=== PATIENT | male | born 1960 | race African-American/Black ===

== ENCOUNTER 2017-06-23 07:51 | Emergency (ER) | payer SELFPAY ==
[2017-06-23] MEDS ORDERED: Lidocaine 1% (PF) 30 ML VIAL ONE (08:37)
== END 2017-06-23 09:37 | disposition home or self-care (01) ==
LOC: ERS 07:51
DX: L02.212 Cutaneous abscess of back [any part, except buttock and flank] (principal); I10 Essential (primary) hypertension; F17.210 Nicotine dependence, cigarettes, uncomplicated; Z71.6 Tobacco abuse counseling; Z79.899 Other long term (current) drug therapy
CPT/HCPCS: 10060; 87070; 87077; 87186; 87205; 99406; J2001

== ENCOUNTER 2017-12-15 16:05 | Observation (INO) | payer BC, SELFPAY ==
[2017-12-15] MEDS ORDERED: Nitroglycerin 0.4 MG TAB (25 Tab Bottle) ONE (16:46)
[2017-12-15 16:51] LABS: #Eosinphils 0.3 thou/uL (0.0-0.7); #Lymphocytes 2.2 thou/uL (1.20-3.40); #Monocytes 0.4 thou/uL (0.11-0.59); #Neutrophils 2.2 thou/uL (1.40-6.50); %Basophils 0.5 % (0.0-1.0); %Eosinophils 5.6 % (0.0-10.0); %Monocytes 7.5 % (0.0-10.0); %Neutrophils 43.3 % (42.0-75.0); Hemoglobin 13.1 g/dL (14.0-18.0); Mean Corpuscular HGB CONC 33.8 g/dL (32.0-36.0); Mean Corpuscular Hemoglobin 31.1 pg (27.0-31.0); Mean Corpuscular Volume 91.9 fL (78.0-98.0); Mean Platelet Volume 7.6 fL (7.4-10.4); Platelet Count 312 thou/uL (130-400); RBC Distribution Width 12.1 % (11.5-14.5); Red Blood Cell (RBC) Count 4.23 mill/uL (4.70-6.10); White Blood Cell (WBC) Count 5.1 thou/uL (4.8-10.8)
[2017-12-15 17:16] LABS: ALT (SGPT) 14 U/L (8-55); AST (SGOT) 25 U/L (5-34); Albumin 3.8 g/dL (3.5-5.0); Alkaline Phosphatase 110 U/L (40-150); Anion Gap 13 mmol/L (10-20); BUN (Urea Nitrogen) 27 mg/dL (8.4-25.7); Bilirubin, Total 0.2 mg/dL (0.2-1.2); CK (CPK) 495 U/L (30-200); Calc. Creatinine Clearance 0 mL/min (70-130); Calcium 9.3 mg/dL (7.8-10.44); Carbon Dioxide 23 mmol/L (22-29); Chloride 107 mmol/L (98-107); Estimated GFR-MDRD 72; Globulin 3.4 g/dL (2.4-3.5); Glucose 113 mg/dL (70-105); Lipase 34 U/L (8-78); Potassium 3.9 mmol/L (3.5-5.1); Protein, Total 7.2 g/dL (6.0-8.3); Sodium 139 mmol/L (136-145)
[2017-12-15 17:19] LABS: CKMB 5.8 ng/mL (0-6.6); Troponin I Less than 0.010 ng/mL (< 0.028)
--- NOTE | 2017-12-15 17:38 | RAD ---
RADIOGRAPH CHEST 1 VIEW: 12/15/17 HISTORY: 57-year-old male with chest pain. FINDINGS: There are no air space densities, pulmonary edema, pneumothorax, or cardiomegaly. The lateral costop hrenic angles are sharp. IMPRESSION: No acute cardiopulmonary findings. sj [] POS: SELMA
[2017-12-15 18:52] LABS: Acetaminophen Less than 6.0 mcg/mL (10.0-30.0); Alcohol Less than 10 mg/dL (Less than 10); Salicylate Less than 8.0 mg/dL (15.0-30.0)
[2017-12-15 20:16] LABS: Troponin I Less than 0.010 ng/mL (< 0.028)
[2017-12-15] MEDS ORDERED: Acetaminophen 325 MG TAB PO PRN (20:16)
[2017-12-15] MEDS ORDERED: Ondansetron HCl/PF 4 MG/2 ML Vial IVP PRN (20:16)
[2017-12-15] MEDS ORDERED: Nitroglycerin 0.4 MG TAB (25 Tab Bottle) PO PRN (20:16)
[2017-12-15 22:51] VITALS: BMI 24.0
[2017-12-15 23:34] LABS: Troponin I 0.013 ng/mL (< 0.028)
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
[2017-12-16 06:41] LABS: Anion Gap 11 mmol/L (10-20); BUN (Urea Nitrogen) 20 mg/dL (8.4-25.7); Calc. Creatinine Clearance 91 mL/min (70-130); Carbon Dioxide 25 mmol/L (22-29); Chloride 107 mmol/L (98-107); Estimated GFR-MDRD Greater than 90; Glucose 93 mg/dL (70-105); Potassium 3.5 mmol/L (3.5-5.1); Sodium 139 mmol/L (136-145)
[2017-12-16 06:45] LABS: Eosinophils 1 % (0-10); Hemoglobin 12.7 g/dL (14.0-18.0); Hypochromia SLIGHT = 6-15 cells (100X) (0-5/hpf); Lymphocytes 53 % (21-51); MDiff Complete? YES; Mean Corpuscular HGB CONC 32.3 g/dL (32.0-36.0); Mean Corpuscular Hemoglobin 29.9 pg (27.0-31.0); Mean Corpuscular Volume 92.7 fL (78.0-98.0); Mean Platelet Volume 7.8 fL (7.4-10.4); Monocytes 10 % (0-10); Neutrophil 36 % (42-75); PLT Morphology Comment Appears Adequate; Platelet Count 312 thou/uL (130-400); RBC Distribution Width 12.1 % (11.5-14.5); Red Blood Cell (RBC) Count 4.26 mill/uL (4.70-6.10); White Blood Cell (WBC) Count 4.9 thou/uL (4.8-10.8)
[2017-12-16] MEDS ORDERED: hydrALAZINE 20 MG/ML VIAL SLOW IVP PRN (08:12)
[2017-12-16] MEDS ORDERED: Loperamide HCl 2 MG CAP PO PRN (08:12)
[2017-12-16] MEDS ORDERED: Temazepam 15 MG CAP PO PRN (08:12)
[2017-12-16] MEDS ORDERED: Diabetic Tussin 200 MG/10 ML UDCUP PO PRN (08:12)
[2017-12-16] MEDS ORDERED: Milk Of Magnesia 30 ML UDCUP PO PRN (08:12)
[2017-12-16] MEDS ORDERED: Eucerin (Mineral Oil/Petrolatum,White) 30 gm Jar TOP PRN (08:12)
[2017-12-16] MEDS ORDERED: Senokot 8.6 MG TAB PO PRN (08:12)
[2017-12-16] MEDS ORDERED: Sodium Chloride 0.65% Nasal 44 ML BOT EA NARE PRN (08:12)
[2017-12-16] MEDS ORDERED: Chloraseptic Spray 180 ml Bottle PO PRN (08:12)
[2017-12-16] MEDS ORDERED: Artificial Tears 18 DROP/0.9 ML EA EYE PRN (08:12)
[2017-12-16] MEDS ORDERED: Mag-Al 1200 mg/1200 mg/30 ML UDCUP PO PRN (08:12)
[2017-12-16] MEDS ORDERED: Loratadine 10 MG TAB PO PRN (08:12)
[2017-12-16] MEDS ORDERED: Ondansetron ODT 4 MG TAB PO PRN (08:12)
[2017-12-16] MEDS ORDERED: Famotidine 20 MG TAB PO SCH (09:00)
[2017-12-16] MEDS ORDERED: Lisinopril/Hydrochlorothiazide 20/25 mg Tablet PO SCH (09:00)
[2017-12-16] MEDS ORDERED: Enoxaparin Sodium 40 MG/0.4 ML SYRINGE SC SCH (09:00)
[2017-12-16] MEDS ORDERED: Aspirin 325 MG TAB PO SCH (09:00)
[2017-12-16 09:19] LABS: Cardiac Risk 4.8 (Less than 4.5)
[2017-12-16 10:29] VITALS: TEMP 98.3
--- NOTE | 2017-12-16 10:39 | DIS ---
PRIMARY CARE PHYSICIAN: [facility] call admission. DATE OF ADMISSION: 12/15/2017 DATE OF DISCHARGE: 12/16/2017 DISCHARGE DISPOSITION: Home. PRIMARY DISCHARGE DIAGNOSES: Chest pain, ruled out acute coronary syndrome. SECONDARY DISCHARGE DIAGNOSIS: Hypertension. PRIMARY PROCEDURES/OPERATIONS: None. RADIOLOGICAL INVESTIGATION: Chest x-ray was normal. Stress test result is pending. SIGNIFICANT LABORATORY DATA: WBC 4.9, hemoglobin 12.7, platelets 312. Sodium 139, potassium 3.5, BUN 20, creatinine 0.93, calcium 9.0. LFT normal. CK 495. Cardiac enzymes negative x3. Lipase 34, LDL 94, cholesterol 144, triglyceride of 102. Serum drug screen negative. DISCHARGE MEDICATIONS: The patient will continue his previous home medication, lisinopril 20/25 two tablets daily. CONTRAINDICATIONS: None. CODE STATUS: FULL CODE. INPATIENT CONSULTANTS: None. ALLERGIES: No known drug allergy. DISCHARGE PLAN: Post hospital, the patient is instructed to follow up with primary care physician in 1 week. HOSPITAL COURSE: A 57-year-old male with a history of hypertension who was admitted by Dr. Ibrahim. Please see his H&P for further details. The patient came to ER for evaluation of chest pain. In the emergency room, his electrocardiogram was normal. Chest x-ray was normal. Routine blood test was unremarkable. He had elevated total CK. His cardiac enzyme remained negative. His telemetry remained unremarkable. This morning I saw this patient and history obtained. Based on his description chest pain does not sound like anginal pain. His telemetry remained unremarkable and currently the patient does not have any chest pain. The patient is planned for stress test later on today. Most likely stress test expecting to be normal. If that is normal, then we will consider discharging him home later on today. His lipid profile is also within normal limit. I have provided patient education about healthy lifestyle. He will resume his previous blood pressure medication. I have seen the patient at bedside and examined and plan of care discussed with the patient and his . VITAL SIGNS: Currently, temperature 97.8, pulse 64, blood pressure 127/59, saturation 96% on room air, respiratory rate 16, weight 163 pounds. All review of system reviewed with him. GENERAL: The patient is currently alert, awake, no obvious acute distress. HEAD: Normocephalic, atraumatic. EYES: Pupils round, reactive to light. Extraocular muscle intact. ENT: Oropharynx within normal limits. Moist mucous membranes. No oral lesion , no pharyngeal erythema, no exudate. NECK: Supple, no JVD, no thyromegaly, no carotid bruit. LUNGS: Clear to auscultation without any rhonchi or rales. CARDIAC: S1, S2 regular without any murmur. ABDOMEN: Soft and benign without any tenderness. EXTREMITIES: No edema. NEUROLOGIC: Nonfocal examination. Later on today if stress test is negative, then we will consider discharging him home. STRESS TEST IS NEGATIVE AND TEST RESULT DISCUSSED WITH PT SAM
[2017-12-16 13:41] VITALS: BP 118/58
--- NOTE | 2017-12-16 14:02 | NM ---
CARDIAC SPECT: HISTORY: A 57-year-old male with chest pain and hypertension. Smoker. TECHNIQUE: A myocardial perfusion scan was performed using the single isotope one day protocol with technetium 9 9m sestamibi, and 9 millicuries was injected intravenously for the rest exam, followed by 28 millicur ies for the stress study. Pharmacologic stress with adenosine was monitored by Vitaly Swan, Nurse Pract itioner. FINDINGS: Homogeneous tracer distribution is seen in the myocardial segments on stress and rest images without fixed or reversible defects. GATED SPECT LVEF: 56% WALL MOTION EXAM: Normal. IMPRESSION: Normal myocardial perfusion scan. POS: SELMA
[2017-12-16] MEDS ORDERED: ADENOSINE 60 MG/20 ML VIAL ONE (15:11)
--- NOTE | 2017-12-16 17:07 | EKG ---
Test Reason : Blood Pressure : / mmHG Vent. Rate : 074 BPM Atrial Rate : 074 BPM P-R Int : 166 ms QRS Dur : 108 ms QT Int : 376 ms P-R-T Axes : 082 029 059 degrees QTc Int : 417 ms Normal sinus rhythm Normal ECG Confirmed by DERRICK VAUGHAN, DR. Lopez ([id number]) on 12/16/2017 5:06:38 PM Referred By: Confirmed By:DR. Jessica MEZA MD
== END 2017-12-16 15:27 | disposition home or self-care (01) ==
LOC: ERS 16:05 → 2SW 22:33
PROVIDERS: ADMIT Family Medicine; ATTEND Family Medicine
DX: R07.9 Chest pain, unspecified (principal); I10 Essential (primary) hypertension; F12.11 Cannabis abuse, in remission; F14.11 Cocaine abuse, in remission; Z79.899 Other long term (current) drug therapy
CPT/HCPCS: 36415; 71045; 78452; 80048; 80053; 80061; 80307; 82553; 83690; 84484; 85025; 93005; 93017; 94760; 96360; A9500; G0378; J0153

== ENCOUNTER 2018-10-09 05:44 | Emergency (ER) | payer BC | END 2018-10-09 06:01 | disposition home or self-care (01) | LOC: ERS 05:44 | DX: I10 Essential (primary) hypertension (principal); F17.210 Nicotine dependence, cigarettes, uncomplicated; Z79.899 Other long term (current) drug therapy | CPT/HCPCS: 99283 ==

== ENCOUNTER 2019-03-06 18:12 | Emergency (ER) | payer BC ==
[2019-03-06] MEDS ORDERED: Morphine 4 MG/ML VIAL ONE (20:12)
[2019-03-06] MEDS ORDERED: Ondansetron ODT 4 MG TAB ONE (20:12)
[2019-03-06] MEDS ORDERED: Ketorolac Tromethamine 30 MG/ML VIAL ONE (20:12)
== END 2019-03-06 20:40 | disposition home or self-care (01) ==
LOC: ERS 18:12
DX: S39.012A Strain of muscle, fascia and tendon of lower back, initial encounter (principal); I10 Essential (primary) hypertension; F17.210 Nicotine dependence, cigarettes, uncomplicated; Z79.899 Other long term (current) drug therapy; X50.1XXA Overexertion from prolonged static or awkward postures, initial encounter
CPT/HCPCS: 96372; 99283; J1885; J2270; Q0162

== ENCOUNTER 2019-05-22 10:00 | Emergency (ER) | payer BC ==
[2019-05-22] MEDS ORDERED: Oxymetazoline HCl 0.05% (30 ML BOT) ONE (10:23)
[2019-05-22] MEDS ORDERED: Lisinopril/Hydrochlorothiazide 20/25 mg Tablet PO SCH (10:30)
== END 2019-05-22 11:42 | disposition home or self-care (01) ==
LOC: ERS 10:00
DX: R04.0 Epistaxis (principal); I10 Essential (primary) hypertension; F17.210 Nicotine dependence, cigarettes, uncomplicated; Z79.899 Other long term (current) drug therapy
CPT/HCPCS: 99283

== ENCOUNTER 2019-08-07 07:32 | Observation (INO) | payer BC, SELFPAY ==
[2019-08-07 08:00] LABS: #Basophils 0.1 thou/uL (0.0-0.2); #Eosinphils 0.2 thou/uL (0.0-0.7); #Lymphocytes 2.1 thou/uL (1.20-3.40); #Monocytes 0.3 thou/uL (0.11-0.59); %Basophils 1.2 % (0.0-1.0); %Eosinophils 4.3 % (0.0-10.0); %Lymphocytes 37.4 % (21.0-51.0); %Monocytes 5.3 % (0.0-10.0); %Neutrophils 51.8 % (42.0-75.0); Hemoglobin 13.5 g/dL (14.0-18.0); Mean Corpuscular Hemoglobin 29.3 pg (27.0-31.0); Mean Corpuscular Volume 88.9 fL (78.0-98.0); Mean Platelet Volume 7.8 fL (7.4-10.4); Platelet Count 263 thou/uL (130-400); RBC Distribution Width 12.9 % (11.5-14.5); White Blood Cell (WBC) Count 5.7 thou/uL (4.8-10.8)
--- NOTE | 2019-08-07 08:06 | RAD ---
RADIOGRAPH CHEST 2 VIEWS: DATE: 08/07/2019 HISTORY: 59-year-old male with chest pain and hypertension FINDINGS: There is no airspace density, pulmonary edema, pleural effusion, pneumothorax, or cardiomegaly. IMPRESSION: No acute cardiopulmonary findings.
[2019-08-07 08:20] LABS: ALT (SGPT) 12 U/L (8-55); AST (SGOT) 20 U/L (5-34); Albumin 3.9 g/dL (3.5-5.0); Alkaline Phosphatase 126 U/L (40-110); Anion Gap 14 mmol/L (10-20); BUN (Urea Nitrogen) 23 mg/dL (8.4-25.7); Bilirubin, Total 0.2 mg/dL (0.2-1.2); Calc. Creatinine Clearance 0 mL/min (70-130); Calcium 9.4 mg/dL (7.8-10.44); Carbon Dioxide 27 mmol/L (22-29); Chloride 105 mmol/L (98-107); Estimated GFR-MDRD 74; Glucose 100 mg/dL (70-105); Potassium 3.6 mmol/L (3.5-5.1); Protein, Total 6.9 g/dL (6.0-8.3); Sodium 142 mmol/L (136-145)
[2019-08-07 10:53] VITALS: BMI 22.6
[2019-08-07] MEDS ORDERED: Lisinopril/Hydrochlorothiazide 20/25 mg Tablet PO SCH (11:15)
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
[2019-08-07 15:15] LABS: Cardiac Risk 2.9 (Less than 4.5)
[2019-08-07] MEDS ORDERED: hydrALAZINE 20 MG/ML VIAL SLOW IVP PRN (15:19)
[2019-08-08 04:45] LABS: Anion Gap 11 mmol/L (10-20); BUN (Urea Nitrogen) 18 mg/dL (8.4-25.7); Calc. Creatinine Clearance 87 mL/min (70-130); Carbon Dioxide 27 mmol/L (22-29); Chloride 103 mmol/L (98-107); Estimated GFR-MDRD Greater than 90; Glucose 92 mg/dL (70-105); Potassium 3.1 mmol/L (3.5-5.1); Sodium 138 mmol/L (136-145)
[2019-08-08] MEDS ORDERED: Lisinopril/Hydrochlorothiazide 20/25 mg Tablet PO SCH (09:00)
[2019-08-08] MEDS ORDERED: Enoxaparin Sodium 30 MG/0.3 ML SYRINGE SC SCH (09:00)
[2019-08-08] MEDS ORDERED: ADENOSINE 60 MG/20 ML VIAL ONE (09:15)
[2019-08-08] MEDS: Potassium Chloride 20 MEQ TAB PO SCH ×2 (13:48→15:06)
--- NOTE | 2019-08-08 14:28 | NM ---
CARDIAC SPECT: CLINICAL HISTORY: 59-year-old male with chest pain, hypertension, smoker. TECHNIQUE: A myocardial perfusion scan was performed using the single isotope one day protocol with technetium-9 9m sestamibi. 10 mCi were injected intravenously for the rest exam followed by 32 mCi for the stress exam. Pharmacologic stress with Adenosine was monitored and interpreted by Dr. Sorensen. FINDINGS: Homogeneous tracer distribution is seen in the myocardial segments on stress and rest images without fixed or reversible defects. GATED SPECT LVEF: 46%. WALL MOTION EXAM: No segmental wall motion abnormalities are seen. There is mild global hypokinesis. IMPRESSION: No evidence of reversible ischemia. POS: JESÚSA
[2019-08-08 16:17] VITALS: BP 158/75; TEMP 96
--- NOTE | 2019-08-09 11:35 | DIS ---
DATE OF ADMISSION: 08/07/2019 DATE OF DISCHARGE: 08/09/2019 HOSPITAL COURSE: Mr. Reece is a 59-year-old male with medical history of hypertension, presented with chest pain. He was diagnosed with atypical chest pain. He, however, had intermediate consortium pretest probability for coronary artery disease. Stress test was carried out and it was negative for reversible ischemia. The patient was discharged with diagnosis of nonspecific chest pain. In addition to that, the patient had grossly elevated blood pressure on presentation and hypertensive urgency. His medications were adjusted, and on the day of discharge, blood pressure was better controlled. He was discharged home with no complaints and was hemodynamically stable. MEDICATIONS LIST: New medications: 1. Chlorthalidone 50 mg daily. 2. Lisinopril 20 mg daily. 3. Tylenol 650 mg q.6 hours p.r.n. chest pain. Discontinued medications: Lisinopril/hydrochlorothiazide combination. Job ID: [id number]
--- NOTE | 2019-08-10 15:34 | EKG ---
Test Reason : Blood Pressure : / mmHG Vent. Rate : 066 BPM Atrial Rate : 066 BPM P-R Int : 178 ms QRS Dur : 114 ms QT Int : 402 ms P-R-T Axes : 075 009 060 degrees QTc Int : 421 ms Normal sinus rhythm Minimal voltage criteria for LVH, may be normal variant Nonspecific T wave abnormality Abnormal ECG Confirmed by MARLEEN RUIZ ([id number]), mapping editor CLARISSE PETTY ([id number]) on 08/10/2019 3:33:49 PM Referred By: Confirmed By:MARLEEN RUIZ
== END 2019-08-08 16:54 | disposition home or self-care (01) ==
LOC: ERS 07:32 → 2NO 09:30
PROVIDERS: ADMIT Internal Medicine; ATTEND Internal Medicine
DX: R07.89 Other chest pain (principal); I16.1 Hypertensive emergency; I10 Essential (primary) hypertension; F17.210 Nicotine dependence, cigarettes, uncomplicated; F12.11 Cannabis abuse, in remission; F14.11 Cocaine abuse, in remission; Z82.49 Family history of ischemic heart disease and other diseases of the circulatory system; Z79.899 Other long term (current) drug therapy
CPT/HCPCS: 36415; 71046; 78452; 80048; 80053; 80061; 84484; 85025; 93005; 93017; 94760; 96372; A9500; G0378; J0153; J1650

== ENCOUNTER 2020-08-13 20:25 | Emergency (ER) | payer BC | END 2020-08-13 21:53 | disposition home or self-care (01) | LOC: ERS 20:25 | DX: I95.9 Hypotension, unspecified (principal); F17.210 Nicotine dependence, cigarettes, uncomplicated | CPT/HCPCS: 93005 ==

== ENCOUNTER 2022-03-22 15:50 | Inpatient (IN) | payer BC, SELFPAY ==
[~2022-03-22 15:50] MED LIST: Iopamidol-370 76% 500 ML 1 ML ONE
[2022-03-22] MEDS ORDERED: Nitroglycerin 2% Ointment 1 INCH/1 GM Packet ONE (16:17)
[2022-03-22 16:34] LABS: #Eosinphils 0.1 thou/uL (0.0-0.7); #Lymphocytes 1.8 thou/uL (1.20-3.40); #Monocytes 0.3 thou/uL (0.11-0.59); #Neutrophils 2.3 thou/uL (1.40-6.50); %Eosinophils 2.9 % (0.0-10.0); %Lymphocytes 39.8 % (21.0-51.0); %Monocytes 6.6 % (0.0-10.0); %Neutrophils 49.7 % (42.0-75.0); Hemoglobin 13.2 g/dL (14.0-18.0); Mean Corpuscular Hemoglobin 31.3 pg (27.0-31.0); Mean Corpuscular Volume 92.1 fl (78.0-98.0); Mean Platelet Volume 8.1 fL (7.4-10.4); Platelet Count 253 10x3/uL (130-400); RBC Distribution Width 12.6 % (11.5-14.5); Red Blood Cell (RBC) Count 4.21 mill/uL (4.70-6.10); White Blood Cell (WBC) Count 4.6 10x3/uL (4.8-10.8)
[2022-03-22 16:51] LABS: ALT (SGPT) 8 U/L (8-55); AST (SGOT) 15 U/L (5-34); Albumin 3.9 g/dL (3.4-4.8); Alkaline Phosphatase 96 U/L (40-110); Anion Gap 13 mmol/L (10-20); BUN (Urea Nitrogen) 20 mg/dL (8.4-25.7); Bilirubin, Total 0.6 mg/dL (0.2-1.2); Calc. Creatinine Clearance 0 mL/min (70-130); Calcium 9.9 mg/dL (7.8-10.44); Carbon Dioxide 25 mmol/L (23-31); Chloride 110 mmol/L (98-107); Estimated GFR 98; Globulin 2.6 g/dL (2.4-3.5); Glucose 90 mg/dL (80-115); Potassium 4.2 mmol/L (3.5-5.1); Protein, Total 6.5 g/dL (5.8-8.1); Sodium 144 mmol/L (136-145)
[2022-03-22] MEDS ORDERED: hydrALAZINE 20 MG/ML VIAL ONE (17:41)
[2022-03-22] MEDS ORDERED: Acetaminophen 325 MG TAB PO PRN (18:14)
[2022-03-22] MEDS ORDERED: Ondansetron PF 4 MG/2 ML Vial IVP PRN (18:14)
[2022-03-22] MEDS ORDERED: Ondansetron ODT 4 MG TAB PO PRN (18:14)
[2022-03-22] MEDS ORDERED: Nitroglycerin 0.4 MG TAB (25 Tab Bottle) SL PRN (18:14)
[2022-03-22] MEDS ORDERED: Calcium Carbonate 500 MG ChewTAB PO PRN (18:14)
[2022-03-22] MEDS ORDERED: Aspirin 325 MG TAB PO SCH (18:15)
[2022-03-22] MEDS ORDERED: Morphine 4 MG/ML VIAL ONE (18:40)
[2022-03-22] MEDS ORDERED: Morphine 4 MG/ML VIAL SLOW IVP SCH (18:45)
[2022-03-22] MEDS ORDERED: Morphine 4 MG/ML VIAL SLOW IVP PRN (21:39)
[2022-03-22] MEDS ORDERED: hydrALAZINE 20 MG/ML VIAL SLOW IVP PRN (21:39)
[2022-03-22 23:00] LABS: Troponin I Less than 0.010 ng/mL (< 0.028)
[2022-03-23 00:07] VITALS: BMI 22.4
[2022-03-23 06:06] LABS: #Eosinphils 0.2 thou/uL (0.0-0.7); #Lymphocytes 2.7 thou/uL (1.20-3.40); #Monocytes 0.5 thou/uL (0.11-0.59); #Neutrophils 3.1 thou/uL (1.40-6.50); %Basophils 0.7 % (0.0-1.0); %Eosinophils 2.4 % (0.0-10.0); %Lymphocytes 41.4 % (21.0-51.0); %Monocytes 7.3 % (0.0-10.0); %Neutrophils 48.2 % (42.0-75.0); Hemoglobin 13.5 g/dL (14.0-18.0); Mean Corpuscular HGB CONC 33.9 g/dL (32.0-36.0); Mean Corpuscular Hemoglobin 31.2 pg (27.0-31.0); Mean Corpuscular Volume 91.8 fl (78.0-98.0); Mean Platelet Volume 8.6 fL (7.4-10.4); Platelet Count 266 10x3/uL (130-400); RBC Distribution Width 12.6 % (11.5-14.5); Red Blood Cell (RBC) Count 4.33 mill/uL (4.70-6.10); White Blood Cell (WBC) Count 6.5 10x3/uL (4.8-10.8)
[2022-03-23 06:26] LABS: Anion Gap 13 mmol/L (10-20); BUN (Urea Nitrogen) 15 mg/dL (8.4-25.7); Calc. Creatinine Clearance 91 mL/min (70-130); Carbon Dioxide 23 mmol/L (23-31); Cardiac Risk 5.7 (Less than 4.5); Chloride 108 mmol/L (98-107); Cholesterol 164 mg/dl (< 200 Desired); Estimated GFR 99; Glucose 75 mg/dL (80-115); HDL Cholesterol 29 mg/dL (>60 Neg Risk); LDL Cholesterol, Calculated 116 mg/dL; Potassium 3.4 mmol/L (3.5-5.1); Sodium 141 mmol/L (136-145); Triglycerides 97 mg/dL (Less than 150)
[2022-03-23] MEDS: Aspirin Chewable 81 MG TAB PO SCH (08:31)
[2022-03-23] MEDS: Enoxaparin Sodium 40 MG/0.4 ML SYRINGE SC SCH (08:31)
[2022-03-23] MEDS ORDERED: FLU VACC QS2022-23(6MOS UP)/PF 60 MCG/0.5 ML SYRINGE IM ONE (09:00)
[2022-03-23] MEDS: Lisinopril 20 MG TAB PO SCH (09:07)
[2022-03-23] MEDS ORDERED: ADENOSINE 60 MG/20 ML VIAL ONE (09:59)
[2022-03-23] MEDS ORDERED: Carvedilol 6.25 MG TAB PO SCH (17:00)
[2022-03-23 20:35] LABS: Amphetamine Not Detected (NotDetected); Barbiturates Screen Not Detected (NotDetected); Benzodiazepine Screen Not Detected (NotDetected); Cocaine Metabolite Screen Not Detected (NotDetected); Methadone Not Detected (NotDetected); Methamphetamine Not Detected (NotDetected); Opiate Screen Detected (NotDetected); Oxycodone Screen Not Detected (NotDetected); Phencyclidine (PCP) Not Detected (NotDetected); THC/Cannabinoid Screen Not Detected (NotDetected); Tricyclic Screen Not Detected (NotDetected)
[2022-03-23] MEDS ORDERED: Atorvastatin Calcium 40 MG TAB PO SCH (21:00)
[2022-03-23] MEDS ORDERED: Ziprasidone 20 MG VIAL IM SCH (23:30)
[2022-03-23] MEDS ORDERED: Nicotine 21 MG PATCH TD PRN (23:31)
[2022-03-23] MEDS ORDERED: Sterile Water 10 ML VIAL FS SCH (23:45)
[2022-03-24] MEDS ORDERED: Haloperidol Lactate 5 MG/ML VIAL SLOW IVP SCH (02:00)
[2022-03-24 02:43] LABS: Lactic Acid 0.9 mmol/L (0.5-2.2)
[2022-03-24 03:03] LABS: ALT (SGPT) 14 U/L (8-55); AST (SGOT) 22 U/L (5-34); Albumin 3.9 g/dL (3.4-4.8); Alkaline Phosphatase 97 U/L (40-110); Anion Gap 18 mmol/L (10-20); BUN (Urea Nitrogen) 17 mg/dL (8.4-25.7); Bilirubin, Total 0.9 mg/dL (0.2-1.2); Calc. Creatinine Clearance 83 mL/min (70-130); Calcium 9.4 mg/dL (7.8-10.44); Carbon Dioxide 16 mmol/L (23-31); Chloride 107 mmol/L (98-107); Estimated GFR 95; Globulin 3.4 g/dL (2.4-3.5); Glucose 87 mg/dL (80-115); Protein, Total 7.3 g/dL (5.8-8.1); Sodium 137 mmol/L (136-145)
[2022-03-24 04:13] LABS: #Eosinphils 0.1 thou/uL (0.0-0.7); #Lymphocytes 2.4 thou/uL (1.20-3.40); #Monocytes 0.6 thou/uL (0.11-0.59); #Neutrophils 2.7 thou/uL (1.40-6.50); %Basophils 0.4 % (0.0-1.0); %Eosinophils 1.9 % (0.0-10.0); %Lymphocytes 41.2 % (21.0-51.0); %Monocytes 9.8 % (0.0-10.0); %Neutrophils 46.7 % (42.0-75.0); Mean Corpuscular HGB CONC 33.9 g/dL (32.0-36.0); Mean Corpuscular Hemoglobin 30.6 pg (27.0-31.0); Mean Corpuscular Volume 90.2 fl (78.0-98.0); Mean Platelet Volume 8.3 fL (7.4-10.4); Platelet Count 281 10x3/uL (130-400); RBC Distribution Width 12.5 % (11.5-14.5); Red Blood Cell (RBC) Count 4.57 mill/uL (4.70-6.10); White Blood Cell (WBC) Count 5.9 10x3/uL (4.8-10.8)
[2022-03-24] MEDS ORDERED: Ziprasidone 20 MG VIAL IM SCH (05:46)
[2022-03-24] MEDS ORDERED: Sterile Water 10 ML VIAL FS PRN (06:00)
[2022-03-24] MEDS ORDERED: Carvedilol 6.25 MG TAB PO SCH ×3 (08:37→17:00)
[2022-03-24] MEDS ORDERED: DULoxetine 60 MG CAP PO SCH (09:00)
[2022-03-24 14:17] VITALS: TEMP 97.9
[2022-03-24] MEDS: Enoxaparin Sodium 40 MG/0.4 ML SYRINGE SC SCH (14:27)
[2022-03-24] MEDS: Aspirin Chewable 81 MG TAB PO SCH (14:27)
[2022-03-24 14:28] VITALS: BP 165/82
[2022-03-24] MEDS: Lisinopril 20 MG TAB PO SCH (14:28)
[2022-03-24 15:11] LABS: HIV (1/2) Antibody/Antigen Non-Reactive (NonReactive); HIV 1/2 INDEX 0.19 S/CO (<1.00)
[2022-03-24 17:29] LABS: Syphilis Antibody Nonreactive (Nonreactive); Syphilis Antibody Index 0.04 S/CO (<1.00 Non-Reactive)
== END 2022-03-24 15:15 | disposition home health service (06) | DRG 313 ==
LOC: ERS 15:50 → 2SW 17:49 → OBSVTOIN 03-24 08:19
PROVIDERS: ADMIT Physician Assistant; ATTEND Family Medicine
DX: R07.9 Chest pain, unspecified (principal); G93.40 Encephalopathy, unspecified; Z20.822 Contact with and (suspected) exposure to COVID-19; I10 Essential (primary) hypertension; E78.5 Hyperlipidemia, unspecified; I16.0 Hypertensive urgency; F03.90 Unspecified dementia, unspecified severity, without behavioral disturbance, psychotic disturbance, mood disturbance, and anxiety; F17.210 Nicotine dependence, cigarettes, uncomplicated; Z79.899 Other long term (current) drug therapy
CPT/HCPCS: 36415; 70450; 71045; 71275; 74174; 78452; 80048; 80053; 80061; 80306; 80307; 82533; 83605; 84443; 84484; 85025; 86780; 87389; 93005; 93017; 96372; 96374; 96375; 96376; A9500; G0378; J0153; J0360; J1630; J1650; J2270; J3486; Q9967; U0003; U0005

== ENCOUNTER 2023-05-27 06:51 | Emergency (ER) | payer SELFPAY ==
[2023-05-27 07:20] LABS: #Eosinphils 0.2 thou/uL (0.0-0.7); #Monocytes 0.4 thou/uL (0.11-0.59); #Neutrophils 1.5 thou/uL (1.40-6.50); %Basophils 0.9 % (0.0-1.0); %Eosinophils 4.7 % (0.0-10.0); %Lymphocytes 51.9 % (21.0-51.0); %Monocytes 8.6 % (0.0-10.0); %Neutrophils 33.9 % (42.0-75.0); Hemoglobin 11.5 g/dL (14.0-18.0); Mean Corpuscular HGB CONC 33.8 g/dL (32.0-36.0); Mean Corpuscular Hemoglobin 30.7 pg (27.0-31.0); Mean Corpuscular Volume 90.9 fl (78.0-98.0); Mean Platelet Volume 10.2 fL (7.4-10.4); Platelet Count 237 10x3/uL (130-400); RBC Distribution Width 13.2 % (11.5-14.5); Red Blood Cell (RBC) Count 3.74 mill/uL (4.70-6.10); White Blood Cell (WBC) Count 4.5 10x3/uL (4.8-10.8)
[2023-05-27 07:52] LABS: ALT (SGPT) 9 U/L (8-55); AST (SGOT) 15 U/L (5-34); Albumin 3.7 g/dL (3.4-4.8); Alkaline Phosphatase 85 U/L (40-110); Anion Gap 12 mmol/L (10-20); BUN (Urea Nitrogen) 16 mg/dL (8.4-25.7); Bilirubin, Total 0.3 mg/dL (0.2-1.2); Calc. Creatinine Clearance 0 mL/min (70-130); Calcium 8.9 mg/dL (7.8-10.44); Carbon Dioxide 23 mmol/L (23-31); Chloride 110 mmol/L (98-107); Estimated GFR 86; Globulin 2.7 g/dL (2.4-3.5); Glucose 108 mg/dL (80-115); Lipase 23 U/L (8-78); Magnesium 2.5 mg/dL (1.6-2.6); Potassium 3.4 mmol/L (3.5-5.1); Protein, Total 6.4 g/dL (5.8-8.1); Sodium 142 mmol/L (136-145)
[2023-05-27 07:55] LABS: Troponin I Less than 0.010 ng/mL (< 0.028)
[2023-05-27 08:06] LABS: INR-International Normal Ratio 1.1; PTT 30.9 sec (22.9-36.1)
[2023-05-27 11:01] LABS: Troponin I Less than 0.010 ng/mL (< 0.028)
== END 2023-05-27 11:29 | disposition home or self-care (01) ==
LOC: ERS 06:51
DX: R07.9 Chest pain, unspecified (principal); I10 Essential (primary) hypertension; F17.210 Nicotine dependence, cigarettes, uncomplicated
CPT/HCPCS: 36415; 71045; 80053; 83690; 83735; 83880; 84443; 84484; 85025; 85610; 85730; 93005

== ENCOUNTER 2023-05-27 12:31 | Emergency (ER) | payer SELFPAY ==
[2023-05-27] MEDS ORDERED: Aspirin Chewable 81 MG TAB ONE (16:24)
== END 2023-05-27 16:40 | disposition left against medical advice (07) ==
LOC: ERS 12:31
DX: R42 Dizziness and giddiness (principal); I10 Essential (primary) hypertension; F17.210 Nicotine dependence, cigarettes, uncomplicated
CPT/HCPCS: 71045; 93005

== ENCOUNTER 2023-10-14 12:59 | Outpatient (CLI) | payer OTHER | END 2023-10-14 13:00 | disposition home or self-care (01) | LOC: BICRAD 12:59 | PROVIDERS: ATTEND Preventive Medicine Occupational Medicine | DX: M54.16 Radiculopathy, lumbar region (principal); M25.78 Osteophyte, vertebrae; I70.0 Atherosclerosis of aorta; M85.88 Other specified disorders of bone density and structure, other site | CPT/HCPCS: 72100 ==

== ENCOUNTER 2024-01-26 20:47 | Emergency (ER) | payer OTHER ==
[2024-01-26 21:15] LABS: #Basophils 0.04 10x3/uL (0.0-0.2); %Basophils 0.7 % (0.0-1.0); %Eosinophils 4.2 % (0.0-10.0); %Lymphocytes 38.6 % (21.0-51.0); %Monocytes 8.4 % (0.0-10.0); %Neutrophils 47.9 % (42.0-75.0); Hematocrit 33.7 % (42.0-52.0); Hemoglobin 11.4 g/dL (14.0-18.0); Mean Corpuscular HGB CONC 33.8 g/dL (32.0-36.0); Mean Corpuscular Hemoglobin 30.6 pg (27.0-31.0); Mean Corpuscular Volume 90.3 fL (78.0-98.0); Mean Platelet Volume 9.8 fL (7.4-10.4); Platelet Count 256 10x3/uL (130-400); RBC Distribution Width 13.3 % (11.5-14.5); Red Blood Cell (RBC) Count 3.73 mill/uL (4.70-6.10)
[2024-01-26 21:33] LABS: ALT (SGPT) 7 U/L (8-55); AST (SGOT) 13 U/L (5-34); Albumin 3.3 g/dL (3.4-4.8); Alkaline Phosphatase 104 U/L (40-110); Anion Gap 10 mmol/L (10-20); BUN (Urea Nitrogen) 16 mg/dL (8.4-25.7); Bilirubin, Total 0.2 mg/dL (0.2-1.2); Calc. Creatinine Clearance 0 mL/min (70-130); Calcium 8.9 mg/dL (7.8-10.44); Carbon Dioxide 25 mmol/L (23-31); Chloride 109 mmol/L (98-107); Estimated GFR 92; Globulin 2.9 g/dL (2.4-3.5); Glucose 138 mg/dL (80-115); Lipase 22 U/L (8-78); Potassium 3.4 mmol/L (3.5-5.1); Protein, Total 6.2 g/dL (5.8-8.1); Sodium 141 mmol/L (136-145)
[2024-01-26 21:39] LABS: Troponin I Less than 0.010 ng/mL (< 0.028)
== END 2024-01-26 22:05 | disposition home or self-care (01) ==
LOC: ERS 20:47
DX: R07.9 Chest pain, unspecified (principal); I10 Essential (primary) hypertension; F17.210 Nicotine dependence, cigarettes, uncomplicated; Z79.899 Other long term (current) drug therapy; Z55.6 Problems related to health literacy
CPT/HCPCS: 36415; 71045; 80053; 83690; 84484; 85025; 93005

== ENCOUNTER 2024-01-28 06:34 | Emergency (ER) | payer OTHER ==
[2024-01-28 07:14] LABS: #Basophils 0.04 10x3/uL (0.0-0.2); %Eosinophils 6.3 % (0.0-10.0); %Lymphocytes 41.8 % (21.0-51.0); %Monocytes 7.7 % (0.0-10.0); Hematocrit 35.8 % (42.0-52.0); Hemoglobin 11.7 g/dL (14.0-18.0); Mean Corpuscular HGB CONC 32.7 g/dL (32.0-36.0); Mean Corpuscular Hemoglobin 30.5 pg (27.0-31.0); Mean Corpuscular Volume 93.2 fL (78.0-98.0); Mean Platelet Volume 10.1 fL (7.4-10.4); Platelet Count 270 10x3/uL (130-400); RBC Distribution Width 13.5 % (11.5-14.5); Red Blood Cell (RBC) Count 3.84 mill/uL (4.70-6.10)
[2024-01-28 07:30] LABS: ALT (SGPT) 5 U/L (8-55); AST (SGOT) 12 U/L (5-34); Albumin 3.3 g/dL (3.4-4.8); Alkaline Phosphatase 91 U/L (40-110); Anion Gap 13 mmol/L (10-20); BUN (Urea Nitrogen) 14 mg/dL (8.4-25.7); Bilirubin, Total 0.3 mg/dL (0.2-1.2); Calc. Creatinine Clearance 0 mL/min (70-130); Calcium 8.9 mg/dL (7.8-10.44); Carbon Dioxide 26 mmol/L (23-31); Chloride 108 mmol/L (98-107); Estimated GFR 98; Globulin 2.9 g/dL (2.4-3.5); Glucose 108 mg/dL (80-115); Potassium 3.4 mmol/L (3.5-5.1); Protein, Total 6.2 g/dL (5.8-8.1); Sodium 144 mmol/L (136-145)
[2024-01-28 07:33] LABS: Troponin I Less than 0.010 ng/mL (< 0.028)
[2024-01-28 09:07] LABS: Troponin I Less than 0.010 ng/mL (< 0.028)
== END 2024-01-28 10:00 | disposition home or self-care (01) ==
LOC: ERS 06:34
DX: I10 Essential (primary) hypertension (principal); F17.210 Nicotine dependence, cigarettes, uncomplicated
CPT/HCPCS: 36415; 71045; 80053; 84484; 85025; 93005; 94760

== ENCOUNTER 2024-01-31 02:57 | Emergency (ER) | payer OTHER ==
[2024-01-31 03:26] LABS: #Basophils 0.05 10x3/uL (0.0-0.2); %Eosinophils 5.9 % (0.0-10.0); %Lymphocytes 42.3 % (21.0-51.0); %Monocytes 8.1 % (0.0-10.0); %Neutrophils 42.5 % (42.0-75.0); Hematocrit 33.7 % (42.0-52.0); Hemoglobin 10.9 g/dL (14.0-18.0); Mean Corpuscular HGB CONC 32.3 g/dL (32.0-36.0); Mean Corpuscular Hemoglobin 30.1 pg (27.0-31.0); Mean Corpuscular Volume 93.1 fL (78.0-98.0); Mean Platelet Volume 9.6 fL (7.4-10.4); Platelet Count 279 10x3/uL (130-400); RBC Distribution Width 13.2 % (11.5-14.5); Red Blood Cell (RBC) Count 3.62 mill/uL (4.70-6.10)
[2024-01-31] MEDS ORDERED: Mag-Al 1200 mg/1200 mg/30 ML UDCUP ONE (03:44)
[2024-01-31 03:45] LABS: Troponin I 0.013 ng/mL (< 0.028)
[2024-01-31] MEDS ORDERED: Lidocaine Viscous Sol 2% 15 ml UD Cup ONE (03:45)
[2024-01-31 03:51] LABS: ALT (SGPT) 6 U/L (8-55); AST (SGOT) 13 U/L (5-34); Albumin 3.3 g/dL (3.4-4.8); Alkaline Phosphatase 81 U/L (40-110); Anion Gap 15 mmol/L (10-20); BUN (Urea Nitrogen) 17 mg/dL (8.4-25.7); Bilirubin, Total 0.2 mg/dL (0.2-1.2); Calc. Creatinine Clearance 0 mL/min (70-130); Carbon Dioxide 23 mmol/L (23-31); Chloride 107 mmol/L (98-107); Estimated GFR 83; Globulin 2.8 g/dL (2.4-3.5); Glucose 82 mg/dL (80-115); Lipase 15 U/L (8-78); Potassium 3.5 mmol/L (3.5-5.1); Protein, Total 6.1 g/dL (5.8-8.1); Sodium 141 mmol/L (136-145)
[2024-01-31] MEDS ORDERED: Calcium Carbonate 500 MG ChewTAB PO SCH (04:30)
== END 2024-01-31 05:25 | disposition home or self-care (01) ==
LOC: ERS 02:57
DX: R10.13 Epigastric pain (principal); I10 Essential (primary) hypertension; F17.210 Nicotine dependence, cigarettes, uncomplicated; Z79.899 Other long term (current) drug therapy
CPT/HCPCS: 36415; 71045; 80053; 83690; 84484; 85025; 93005

== ENCOUNTER 2024-01-31 05:36 | Emergency (ER) | payer OTHER ==
[2024-01-31 06:47] LABS: Troponin I 0.016 ng/mL (< 0.028)
== END 2024-01-31 07:03 | disposition home or self-care (01) ==
LOC: ERS 05:36
DX: R10.13 Epigastric pain (principal); I10 Essential (primary) hypertension; F17.210 Nicotine dependence, cigarettes, uncomplicated; Z79.899 Other long term (current) drug therapy
CPT/HCPCS: 36415; 71045; 80053; 83690; 84484; 85025; 93005; 99284

== ENCOUNTER 2025-01-11 16:08 | Inpatient (IN) | payer OTHER ==
[~2025-01-11 16:08] MED LIST changes: -Iopamidol-370 76% 500 ML 1 ML ONE; +Iopamidol-370 76% 500 ML MDV (1 ML CHARGE) ONE
[2025-01-11 18:09] LABS: #Basophils 0.03 10x3/uL (0.0-0.2); #Eosinophils 0.03 10x3/uL (0.0-0.7); #Monocytes 0.77 10x3/uL (0.11-0.59); #Neutrophils 7.16 10x3/uL (1.40-6.50); %Basophils 0.3 % (0.0-1.0); %Eosinophils 0.3 % (0.0-10.0); %Lymphocytes 11.4 % (21.0-51.0); %Monocytes 8.5 % (0.0-10.0); %Neutrophils 78.9 % (42.0-75.0); Hematocrit 39.1 % (42.0-52.0); Hemoglobin 12.8 g/dL (14.0-18.0); Mean Corpuscular Hemoglobin 29.1 pg (27.0-31.0); Mean Corpuscular Volume 88.9 fL (78.0-98.0); Platelet Count 270 10x3/uL (130-400); Red Blood Cell (RBC) Count 4.40 mill/uL (4.70-6.10); White Blood Cell (WBC) Count 9.07 10x3/uL (4.8-10.8)
[2025-01-11 19:19] LABS: ALT (SGPT) Less than 7 U/L (Less than 45); AST (SGOT) 16 U/L (11-34); Albumin 3.5 g/dL (3.1-4.5); Alkaline Phosphatase 99 U/L (40-110); Anion Gap 17 mmol/L (10-20); BUN (Urea Nitrogen) 8 mg/dL (8.4-25.7); Bilirubin, Total 0.6 mg/dL (0.3-1.2); Calc. Creatinine Clearance 0 mL/min (70-130); Calcium 9.5 mg/dL (7.8-10.44); Carbon Dioxide 25 mmol/L (23-31); Chloride 101 mmol/L (98-107); Globulin 4.0 g/dL (2.4-3.5); Glucose 78 mg/dL (80-115); Potassium 3.7 mmol/L (3.5-5.1); Sodium 139 mmol/L (136-145)
[2025-01-11] MEDS ORDERED: Acetaminophen 500 MG TAB ONE (23:57)
[2025-01-12] MEDS ORDERED: Dextrose 50% Abboject 50 ML SYRINGE SLOW IVP PRN (00:18)
[2025-01-12] MEDS ORDERED: Glucagon 1 MG/ML KIT IM PRN (00:18)
[2025-01-12] MEDS ORDERED: Ondansetron PF 4 MG/2 ML Vial IVP PRN (00:18)
[2025-01-12 01:00] VITALS: BMI 21.5
[2025-01-12] MEDS: hydrALAZINE 20 MG/ML VIAL SLOW IVP PRN (01:23)
[2025-01-12 06:52] LABS: #Basophils Less than 0.03 10x3/uL (0.0-0.2); #Eosinophils Less than 0.03 10x3/uL (0.0-0.7); #Monocytes 1.18 10x3/uL (0.11-0.59); #Neutrophils 8.40 10x3/uL (1.40-6.50); %Basophils 0.2 % (0.0-1.0); %Eosinophils 0.2 % (0.0-10.0); %Lymphocytes 15.3 % (21.0-51.0); %Monocytes 10.3 % (0.0-10.0); %Neutrophils 73.5 % (42.0-75.0); Hematocrit 39.3 % (42.0-52.0); Hemoglobin 12.4 g/dL (14.0-18.0); Mean Corpuscular Hemoglobin 28.5 pg (27.0-31.0); Mean Corpuscular Volume 90.3 fL (78.0-98.0); Platelet Count 315 10x3/uL (130-400); Red Blood Cell (RBC) Count 4.35 mill/uL (4.70-6.10); White Blood Cell (WBC) Count 11.43 10x3/uL (4.8-10.8)
[2025-01-12 07:11] LABS: Anion Gap 15 mmol/L (10-20); BUN (Urea Nitrogen) 9 mg/dL (8.4-25.7); Calc. Creatinine Clearance 71 mL/min (70-130); Calcium 9.3 mg/dL (7.8-10.44); Carbon Dioxide 25 mmol/L (23-31); Chloride 101 mmol/L (98-107); Glucose 80 mg/dL (80-115); Potassium 3.4 mmol/L (3.5-5.1); Sodium 138 mmol/L (136-145)
[2025-01-12] MEDS ORDERED: PROPOFOL 20 ML ONE ×2 (10:50→12:33)
[2025-01-12] MEDS ORDERED: fentaNYL PF 100 MCG/2 ML SYRINGE ONE (10:50)
[2025-01-12] MEDS ORDERED: Lidocaine 1% PF 5 ML VIAL ONE (10:52)
[2025-01-12] MEDS ORDERED: Glycopyrrolate 0.2 MG/ML 5 ML SYRINGE ONE (10:52)
[2025-01-12] MEDS ORDERED: hydrALAZINE 20 MG/ML VIAL ONE (10:59)
[2025-01-12] MEDS ORDERED: Bupivacaine 0.25% HCL 30 ML VIAL ONE (12:02)
[2025-01-12] MEDS ORDERED: Famotidine/PF 20 mg/2ml Vial ONE (12:04)
[2025-01-12] MEDS ORDERED: Lidocaine 2% 6 ML (Jelly) SYR ONE (12:10)
[2025-01-12] MEDS ORDERED: Ondansetron PF 4 MG/2 ML Vial ONE (12:47)
[2025-01-12] MEDS ORDERED: Cyclobenzaprine 10 MG TAB PO PRN (14:09)
[2025-01-12] MEDS: Carvedilol 25 MG TAB PO SCH (17:48)
[2025-01-13] MEDS: Spironolactone 25 MG TAB PO SCH (09:42)
[2025-01-13] MEDS: Lisinopril 20 MG TAB PO SCH (09:42)
[2025-01-13 09:48] LABS: #Basophils 0.03 10x3/uL (0.0-0.2); #Eosinophils Less than 0.03 10x3/uL (0.0-0.7); #Monocytes 0.68 10x3/uL (0.11-0.59); #Neutrophils 11.63 10x3/uL (1.40-6.50); %Basophils 0.2 % (0.0-1.0); %Eosinophils 0.0 % (0.0-10.0); %Lymphocytes 9.9 % (21.0-51.0); %Monocytes 5.0 % (0.0-10.0); %Neutrophils 84.7 % (42.0-75.0); Hematocrit 35.8 % (42.0-52.0); Hemoglobin 11.9 g/dL (14.0-18.0); Mean Corpuscular Hemoglobin 29.4 pg (27.0-31.0); Mean Corpuscular Volume 88.4 fL (78.0-98.0); Platelet Count 328 10x3/uL (130-400); Red Blood Cell (RBC) Count 4.05 mill/uL (4.70-6.10); White Blood Cell (WBC) Count 13.73 10x3/uL (4.8-10.8)
[2025-01-13 10:02] VITALS: TEMP 97.5
[2025-01-13 10:11] LABS: Anion Gap 17 mmol/L (10-20); BUN (Urea Nitrogen) 13 mg/dL (8.4-25.7); Calc. Creatinine Clearance 87 mL/min (70-130); Calcium 9.5 mg/dL (7.8-10.44); Carbon Dioxide 24 mmol/L (23-31); Chloride 100 mmol/L (98-107); Glucose 103 mg/dL (80-115); Potassium 3.6 mmol/L (3.5-5.1); Sodium 137 mmol/L (136-145)
[2025-01-13 13:08] VITALS: BP 141/73
[2025-01-13] MEDS: Ciprofloxacin 500 MG TAB PO SCH (17:09)
[2025-01-13] MEDS: metroNIDAZOLE 500 MG TAB PO SCH (17:09)
[2025-01-14] MEDS ORDERED: Ciprofloxacin 500 MG TAB PO SCH (06:00)
[2025-01-14] MEDS ORDERED: metroNIDAZOLE 500 MG TAB PO SCH (09:00)
== END 2025-01-13 19:25 | disposition home or self-care (01) | DRG 349 ==
LOC: ERS 16:08 → SURG A 01-12 00:18
PROVIDERS: ADMIT Colon & Rectal Surgery; ATTEND Colon & Rectal Surgery
PROC: 3E03329 Introduction of Other Anti-infective into Peripheral Vein, Percutaneous Approach (ICD-10-PCS; 2025-01-11)
PROC: 3E033XZ Introduction of Vasopressor into Peripheral Vein, Percutaneous Approach (ICD-10-PCS; 2025-01-11)
PROC: 0D9Q0ZZ Drainage of Anus, Open Approach (ICD-10-PCS; principal; 2025-01-12)
DX: K61.0 Anal abscess (principal); Z93.3 Colostomy status; Z79.899 Other long term (current) drug therapy; F32.A Depression, unspecified; F17.210 Nicotine dependence, cigarettes, uncomplicated; Z60.2 Problems related to living alone
CPT/HCPCS: 36415; 70450; 72193; 80048; 80053; 83605; 85025; 87040; 87070; 87077; 87186; 87205; 96374; 96375; J0169; J0360; J0665; J1100; J1308; J2060; J2270; J2405; J2543; J2704; J3486; J7120; Q9967